=== PATIENT | female | born 1975 | race Caucasian/White ===

== ENCOUNTER 2016-11-06 20:01 | Emergency (ER) | payer OTHER ==
[2016-11-06] MEDS ORDERED: LORazepam 2 MG/ML SYRINGE IV STA ×2 (20:09→21:01)
[2016-11-06] MEDS ORDERED: SODIUM CHLORIDE 0.9% 1,000 ML IV ONE (20:09)
[2016-11-06 20:10] VITALS: TEMP 97.8
[2016-11-06 20:38] LABS: Basophils # (A) 0.1 k/uL (0-0.2); Basophils % (A) 1 %; CH 31.9; CHCM 34.5; Eosinophils # (A) 0.1 k/uL (0-0.7); Eosinophils % (A) 2 %; HCT 43.6 % (34.0-46.0); HDW 2.89; HGB 14.4 gm/dL (11.4-16.0); Luc # (Auto) 0.06; Luc % (Auto) 1; Lymphocytes # (A) 2.1 k/uL (1.0-4.8); Lymphocytes % (A) 27 %; MCH 30.6 pg (25.0-35.0); MCHC 33.1 g/dL (31.0-37.0); MCV 92.7 fL (80.0-100.0); Mean Platelet Volume 7.8; Monocytes # (A) 0.3 k/uL (0-1.0); Monocytes % (A) 5 %; Neutrophils # (A) 4.9 k/uL (1.3-7.7); Neutrophils % (A) 64 %; RDW 13.5 % (11.5-15.5); WBC 7.6 k/uL (3.8-10.6); WBC (Perox) 7.92
[2016-11-06 20:43] VITALS: RESP 16
[2016-11-06 20:51] LABS: ALT 62 U/L (9-52); AST 40 U/L (14-36); Alkaline Phosphatase 124 U/L (38-126); Anion Gap 17 mmol/L; Blood Urea Nitrogen 6 mg/dL (7-17); Calcium 9.6 mg/dL (8.4-10.2); Carbon Dioxide 22 mmol/L (22-30); Chloride 101 mmol/L (98-107); Glucose 161 mg/dL (74-99); Non-African American GFR(MDRD) >60 (>60 ml/min/1.73 sqM); Potassium 3.3 mmol/L (3.5-5.1); Sodium 140 mmol/L (137-145); Total Bilirubin 0.5 mg/dL (0.2-1.3); Total Protein 7.1 g/dL (6.3-8.2)
--- NOTE | 2016-11-06 21:09 | ED ---
Seizure HPI - General Chief Complaint: Seizure Stated Complaint: Seizure Time Seen by Provider: 11/06/16 20:05 Source: patient, EMS Mode of arrival: EMS - History of Present Illness Initial Comments: Is a 41-year-old female with a history of seizures who presents emergency department for a seizure. The patient states he does not recall exactly what happened but EMS stated that the boyfriend witnessed admit lasted 30 seconds to 1 minute. Patient states that she's been out of her Topamax for the last 5 days. She did take a dose of 200 mg this evening however had a breakthrough seizure this evening. She currently states that she just feels very anxious which is typical for her after her seizures. She denies any headaches. No chest pain or palpitations. She denies any tongue biting or urinary incontinence. She denies any other complaints. - Related Data Home Medications Medication Instructions Recorded Confirmed Baclofen [Baclofen] 10 mg PO TID PRN 04/29/14 11/06/16 Levothyroxine Sodium [Synthroid] 50 mcg PO DAILY 04/29/14 11/06/16 Topiramate [Topiramate] 150 mg PO BID 04/29/14 11/06/16 Mirtazapine [Remeron] 45 mg PO HS 05/19/15 11/06/16 Potassium Chloride [Klor-Con 10] 10 meq PO DAILY 11/06/16 11/06/16 Pregabalin [Lyrica] 200 mg PO BID 11/06/16 11/06/16 Propranolol [Inderal] 40 mg PO BID 11/06/16 11/06/16 Previous Rx's Medication Instructions Recorded ALPRAZolam [Xanax] 0.5 mg PO BID PRN #10 tablet 12/04/15 Allergies Allergy/AdvReac Type Severity Reaction Status Date / Time ibuprofen [From Motrin] AdvReac Rash/Hives Verified 11/06/16 20:20 ketorolac tromethamine AdvReac Itching Verified 11/06/16 20:20 [From Toradol] sumatriptan [From Imitrex] AdvReac Dyspnea Verified 11/06/16 20:20 sumatriptan succinate AdvReac Dyspnea Verified 11/06/16 20:20 [From Imitrex] Review of Systems ROS Statement: Those systems with pertinent positive or pertinent negative responses have been documented in the HPI. ROS Other: All systems not noted in ROS Statement are negative. Past Medical History Past Medical History: Hypertension, Seizure Disorder Additional Past Medical History / Comment(s): migraine History of Any Multi-Drug Resistant Organisms: None Reported Past Surgical History: Hysterectomy, Tubal Ligation Past Psychological History: Anxiety, Depression Smoking Status: Current every day smoker Past Alcohol Use History: None Reported Past Drug Use History: None Reported General Exam - General Exam Comments Initial Comments: Constitutional: Awake alert Appears comfortable Head: Normocephalic atraumatic Eyes: no conjunctival injection No scleral icterus EOMI Neck: No JVD Supple Heart: Tachycardia normal S1-S2 no murmurs Lungs: Clear to auscultation bilaterally No wheezing No rales Abdomen: Soft nondistended nontender Extremities: Non edematous DP pulses intact Radial pulses intact Neuro: A&Ox3 No focal neurologic deficits Psych: Appropriate mood and affect Course Vital Signs 11/06/16 11/06/16 20:04 20:42 Temperature 97.8 F Pulse Rate 138 H 122 H Respiratory 14 16 Rate Blood Pressure 170/79 142/66 O2 Sat by Pulse 97 96 Oximetry - Reevaluation(s) Reevaluation #1: 11/06/16 21:08 EKG showing sinus tachycardia with a rate of 134. No ST segment changes or T- wave inversions. QTC is 576. Other intervals are normal. No ectopy. Medical Decision Making - Medical Decision Making Is a 41-year-old female with a history of seizures who presents emergency department for breakthrough seizures. Blood work was reviewed and unremarkable. Patient had no further seizure activity in the emergency department. Heart rate was elevated when she arrived however improved after IV fluids and Ativan. This time we'll send the patient home. She has her Topamax at home that she can take. She is to follow-up with Dr. Spears. She can return if she has recurrent seizures. - Lab Data Result diagrams: 11/06/16 20:21 11/06/16 20:21 Lab Results 11/06/16 11/06/16 Range/Units 20:21 20:21 WBC 7.6 (3.8-10.6) k/uL RBC 4.70 (3.80-5.40) m/uL Hgb 14.4 (11.4-16.0) gm/dL Hct 43.6 (34.0-46.0) % MCV 92.7 (80.0-100.0) fL MCH 30.6 (25.0-35.0) pg MCHC 33.1 (31.0-37.0) g/dL RDW 13.5 (11.5-15.5) % Plt Count 211 (150-450) k/uL Neutrophils % 64 % Lymphocytes % 27 % Monocytes % 5 % Eosinophils % 2 % Basophils % 1 % Neutrophils # 4.9 (1.3-7.7) k/uL Lymphocytes # 2.1 (1.0-4.8) k/uL Monocytes # 0.3 (0-1.0) k/uL Eosinophils # 0.1 (0-0.7) k/uL Basophils # 0.1 (0-0.2) k/uL Sodium 140 (137-145) mmol/L Potassium 3.3 L (3.5-5.1) mmol/L Chloride 101 (98-107) mmol/L Carbon Dioxide 22 (22-30) mmol/L Anion Gap 17 mmol/L BUN 6 L (7-17) mg/dL Creatinine 0.68 (0.52-1.04) mg/dL Est GFR (MDRD) Af Amer >60 (>60 ml/min/1.73 sqM) Est GFR (MDRD) Non-Af >60 (>60 ml/min/1.73 sqM) Glucose 161 H (74-99) mg/dL Calcium 9.6 (8.4-10.2) mg/dL Total Bilirubin 0.5 (0.2-1.3) mg/dL AST 40 H (14-36) U/L ALT 62 H (9-52) U/L Alkaline Phosphatase 124 (38-126) U/L Total Protein 7.1 (6.3-8.2) g/dL Albumin 4.1 (3.5-5.0) g/dL Disposition Clinical Impression: Breakthrough seizure Disposition: HOME SELF-CARE Condition: Stable Instructions: Recurrent Seizures in Adults (ED) Referrals: Humberto Porter MD [Primary Care Provider] - 1-2 days Abel Spears MD [STAFF PHYSICIAN] - 1-2 days
[2016-11-06 21:38] VITALS: BP 143/68; PULSE 108
== END 2016-11-06 21:49 | disposition home or self-care (01) ==
LOC: EC 20:01
DX: G40.909 Epilepsy, unspecified, not intractable, without status epilepticus (principal); I10 Essential (primary) hypertension; F32.9 Major depressive disorder, single episode, unspecified; F41.9 Anxiety disorder, unspecified; F17.200 Nicotine dependence, unspecified, uncomplicated; Z79.899 Other long term (current) drug therapy; Z88.6 Allergy status to analgesic agent; Z88.8 Allergy status to other drugs, medicaments and biological substances
CPT/HCPCS: 36415; 80053; 80201; 85025; 99284; 96374; 96361; 96376; J2060; 93005

== ENCOUNTER → 2016-12-04 | Outpatient (CLI) | payer OTHER ==
--- NOTE | 2016-12-04 10:32 | WWHP ---
DATE OF SERVICE: 12/04/2016 CHIEF COMPLAINT: The patient is here for her routine gynecologic exam and mammogram. HPI: This is a 41-year-old G5, P3-0-2-3 with an LMP of 09/2015. She underwent GUANAKITO for benign reasons. The patient is complaining of a rash under the right breast. She was given nystatin powder but does not feel the powder is staying on the area of the rash. It does feel better when she uses the powder but it has not gone away. She is otherwise without complaints. PAST MEDICAL HISTORY: Chronic hypertension, seizures, fibromyalgia, migraine headaches, anxiety, depression and irritable bowel syndrome. MEDICATIONS: 1. Inderal 60 mg b.i.d. 2. Lyrica 200 mg b.i.d. 3. Remeron 45 mg q.h.s. 4. Topamax 150 mg daily. 5. Baclofen 10 mg t.i.d. 6. Xanax 1 mg b.i.d. p.r.n. 7. Seroquel 200 mg q.h.s. 8. Potassium supplement daily. 9. Ambien 10 mg q.h.s. Allergies to MOTRIN, TORADOL and IMITREX. PAST SURGICAL HISTORY: tubal ligation in 1997, endometrial ablation in 2010, GUANAKITO in 2015. 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 She has no history of STDs. SOCIAL HISTORY: She previously smoked about 1/2 pack of cigarettes per day, but states she quit about 3 months ago and denies alcohol and drug use. She is and has been with her current boyfriend since 2006 and lives with him. She is currently not employed. Family history is unchanged from the 2015 H&P. REVIEW OF SYSTEMS: She has gained about 50 pounds over the last year. This was after losing weight from the prior year. RESPIRATORY: She states she can get short of breath with exertion and this is one reason she quit smoking. CARDIAC: Occasional palpitation. GI: She has had loose stool, but this has been chronic and since the age of 15. PHYSICAL EXAM: Blood pressure 105/65. Height 5 feet 7 inches. Weight 289 pounds. Temperature 96.5, pulse 79. This a well-developed, obese white female who is alert and oriented x3 in no acute distress. HEENT is within normal limits. NECK: Supple without mass or thyromegaly. CHEST AND LUNGS: Clear to auscultation. HEART: Regular rate and rhythm. Breast reveals area of erythema under the right breast. The breasts are without mass or discharge. Axillary exam is negative for adenopathy. BACK: Negative for CVA tenderness. Abdomen is obese, soft, nontender, without palpable masses. PELVIC EXAM: Normal external genitalia. Vagina appears normal and there is no evidence of prolapse. Bimanual exam is negative for mass or tenderness. Rectal exam is negative for mass or tenderness and is negative for occult blood. EXTREMITIES: Nontender. IMPRESSION: 1. A 41-year-old female, status post total abdominal hysterectomy for benign reasons. 2. Candidal intertrigo beneath the right breast. PLAN: 1. Pap smears have been discontinued. 2. Self breast examination was discussed. 3. Mammogram will be done today. 4. Nystatin cream b.i.d. under the right breast as directed. She will also try to keep the area clean and dry. 5. She will return in one year.
--- NOTE | 2016-12-05 09:06 | MM ---
Reason for exam: screening (asymptomatic). Last mammogram was performed 1 year and 8 months ago. History: Family history of breast cancer in maternal grandmother and breast cancer in 3 maternal aunts. Physical Findings: A clinical breast exam by your physician is recommended on an annual basis and results should be correlated with mammographic findings. MG Screening Mammo w CAD Bilateral CC and MLO view(s) were taken. Prior study comparison: April 04, 2015, bilateral MG screening mammo w CAD. March 02, 2012, CAD bilateral diagnostic mammogram. There are scattered fibroglandular densities. There is no discrete abnormality. ASSESSMENT: Negative, BI-RAD 1 RECOMMENDATION: Routine screening mammogram of both breasts in 1 year.
== END | disposition home or self-care (01) ==
LOC: WWCWWP 09:18
PROVIDERS: ATTEND Obstetrics & Gynecology
DX: Z12.31 Encounter for screening mammogram for malignant neoplasm of breast (principal); I10 Essential (primary) hypertension; G43.909 Migraine, unspecified, not intractable, without status migrainosus; G40.909 Epilepsy, unspecified, not intractable, without status epilepticus; F32.9 Major depressive disorder, single episode, unspecified; M79.7 Fibromyalgia; F41.9 Anxiety disorder, unspecified; Z88.8 Allergy status to other drugs, medicaments and biological substances; Z88.5 Allergy status to narcotic agent; Z90.710 Acquired absence of both cervix and uterus; Z87.891 Personal history of nicotine dependence; Z79.899 Other long term (current) drug therapy

== ENCOUNTER → 2017-01-30 | Outpatient (CLI) | payer OTHER ==
[2017-01-30 12:55] LABS: ALT 37 U/L (9-52); AST 32 U/L (14-36); Anion Gap 13 mmol/L; Blood Urea Nitrogen 10 mg/dL (7-17); Calcium 9.6 mg/dL (8.4-10.2); Carbon Dioxide 21 mmol/L (22-30); Chloride 108 mmol/L (98-107); Cholesterol 151 mg/dL (<200); Creatine Kinase 42 U/L (30-135); Glucose 120 mg/dL (74-99); HDL Cholesterol 35 mg/dL (40-60); Non-African American GFR(MDRD) >60 (>60 ml/min/1.73 sqM); Sodium 142 mmol/L (137-145); Triglycerides 310 mg/dL (<150)
== END | disposition home or self-care (01) ==
LOC: LABWHC1 11:15
PROVIDERS: ATTEND Internal Medicine
DX: Z00.00 Encounter for general adult medical examination without abnormal findings (principal); E78.2 Mixed hyperlipidemia; D11.9 Benign neoplasm of major salivary gland, unspecified
CPT/HCPCS: 36415; 80048; 80061; 80201; 82550; 84450; 84460

== ENCOUNTER → 2017-01-30 | Outpatient (CLI) | payer OTHER | END | disposition home or self-care (01) | LOC: LABWHC1 11:18 | PROVIDERS: ATTEND Psychiatry & Neurology Neurology | DX: R56.9 Unspecified convulsions (principal) | CPT/HCPCS: 36415; 80201 ==

== ENCOUNTER → 2017-02-07 | Outpatient (CLI) | payer OTHER ==
--- NOTE | 2017-02-07 17:16 | XR ---
EXAMINATION TYPE: XR chest 2V DATE OF EXAM: 02/07/2017 4:54 PM COMPARISON: 09/27/2016 HISTORY: Cough TECHNIQUE: Frontal and lateral views of the chest are obtained. FINDINGS: There is no heart failure nor confluent pneumonic infiltrate. There are no hilar masses. H eart size is normal. Costophrenic angles are clear. Bony thorax appears intact. IMPRESSION: No active cardiopulmonary disease. No change.
== END | disposition home or self-care (01) ==
LOC: RADXRMAIN 16:34
PROVIDERS: ATTEND Internal Medicine
DX: R05 Cough (principal)
CPT/HCPCS: 71020